=== PATIENT | male | born 1980 | race African-American/Black ===

== ENCOUNTER 2024-06-02 20:08 | Emergency (ER) | payer OTHER ==
[2024-06-02] MEDS ORDERED: Ketorolac Tromethamine 30 MG (1 mL) VIAL ONE (21:25)
== END 2024-06-02 21:38 | disposition home or self-care (01) ==
LOC: CSHERS 20:08
DX: K08.89 Other specified disorders of teeth and supporting structures (principal); K02.9 Dental caries, unspecified
CPT/HCPCS: 96372; 99283; J1885